=== PATIENT | female | born 1960 | race Caucasian/White ===

== ENCOUNTER → 2017-10-13 | Outpatient (CLI) | payer BC ==
--- NOTE | 2017-10-13 10:12 | Discharge Instructions ---
Discharge Instructions Procedure Procedure Date: Oct 13, 2017. Reason for visit: Right Lymph Node. Discharge Discharge Date: Oct 13, 2017. Discharge Diagnosis: post right breast (8:00) lymph node biopsy Instructions Activity Recommendations: Additional Limitations (see below) Return to School/Work: no limitations Recommended Home Diet: No Limitations Provider Instructions: ACTIVITY RECOMMENDATIONS: * No lifting, pushing, pulling or exercising the affected side for three days. RETURN TO SCHOOL/WORK: * You may return to work/school after the procedure, but do not perform any strenuous activities for 24 to 48 hours. MEDICATIONS: * Tylenol (two 325 mg) every four to six hours if needed for mild pain (if not allergic to Tylenol). DIET: * Resume previous diet. SPECIAL CARE INSTRUCTIONS: * Keep biopsy site dry for 24 hours. May shower after 24 hours, but do not soak (bathe) incision. May remove Tegaderm (plastic patch) 24 hours after procedure * Leave the steri-strips on for one week. Allow the steri-strips to fall off by themselves. If not off after one week, you may remove them. You may place a Bandaid crosswise over the strips, if desired. * Apply ice 10 minutes on and 10 minutes off as needed. * Wear a bra at bedtime to sleep more comfortably for 2-3 days. * Your referring physician should have the results after approximately 5 to 7 business days. * Call for unusual bleeding, fever, drainage, etc or if you have any questions call [phone] during normal business hours or after hours call Dr Puente, . FOLLOW UP VISIT: Follow-up with Referring Physician as scheduled. Allergies Coded Allergies: No Known Allergies (Unverified , NONE, 03/22/16) Julio Hernandez Recommendations: Call your doctor if: * Temperature above 101 degrees * Pain not relieved by pain medicine ordered * There is increased drainage or redness from any incision * You have any unanswered questions or concerns. Your Doctors Instructions noted above were prepared by provider Sapna Puente. Patient Signature Section: Patient Instructions Signature Page Michelle Jean Patient (or Guardian) Signature/Date: I have read and understand the instructions given to me by my caregivers. Caregiver/RN/Doctor Signature/Date: The above-named patient and/or guardian has received patient instructions on this date. + Original Patient Signature Page (only) stays with chart. Please make copy for patient.
--- NOTE | 2017-10-13 16:19 | MAMMOGRAPHY REPORT ---
UNILATERAL RIGHT DIGITAL DIAGNOSTIC MAMMOGRAM TOMOSYNTHESIS: 10/13/2017 CLINICAL HISTORY: Prominent intramammary lymph node right 8:00 breast. Patient presents for tissue sa mpling. Please refer to the report from right breast lymph node biopsy performed at the same time for full de tail. IMPRESSION: POST PROCEDURE IMAGING FOR MARKER PLACEMENT Please refer to the report from right breast lymph node biopsy performed at the same time for full de tail. Some breast cancers are not detected with mammography. A negative mammographic report should not caroline y biopsy if a clinically suggestive mass is present. Sapna Puente M.D. ay/:10/13/2017 10:14:03 Door Installer: Senia Barton, [facility] BI-RADS Code: Post Procedure Imaging For Marker Placement
--- NOTE | 2017-10-15 07:54 | MAMMOGRAPHY REPORT ---
ULTRASOUND GUIDED BIOPSY RIGHT BREAST: 10/13/2017 CLINICAL HISTORY: Prominent intramammary lymph node in the 8:00 right breast. Patient presents for ti ssue sampling. PATIENT CONSENT: The procedure, risks and benefits were discussed with the patient and informed conse nt was obtained both verbally and in writing. Specific risks to this procedure include: bleeding, in fection, puncture of adjacent structure, nontarget biopsy, sampling error, pain, metal allergy and me dication reaction. PROCEDURE DESCRIPTION: A time out was performed and the right breast was agreed as the site of biopsy . First repeat targeted ultrasound was performed in the 8:00 far lateral axis of the right breast in order to identify the slightly prominent intramammary lymph node. It is again seen and amenable to tissue sampling. Please see below. The skin of the lateral right breast was prepped and draped in the usual sterile fashion. 1% buffere d lidocaine without epinephrine was administered as local anesthesia. First, fine-needle aspiration biopsy passes were obtained of the lymph node, for flow cytometric assessment, using three 18-gauge n eedles which were then rinsed in sterile saline. Then, additional buffered lidocaine with epinephrin e was administered and a small skin incision was made. 4 core biopsy samples were then obtained util izing a 14-gauge achieve biopsy device, and placed on saline moistened Telfa. A metallic marker was placed within the lymph node after the biopsy. The patient tolerated the procedure well and there wa s no immediate complication. Hemostasis was achieved after several minutes of manual compression. Th e samples were sent to the pathology department in an appropriately labeled containers. A postprocedure right MLO tomosynthesis view was obtained which documents the biopsy marker clip depl oyed properly and is located within the lymph node in question. No significant postbiopsy hematoma. Pathology is pending. IMPRESSION: ULTRASOUND GUIDED BIOPSY Status post ultrasound-guided core biopsy and fine-needle aspiration biopsy of a prominent lymph node in the 8:00 right breast, with biopsy marker clip placed at the site. The patient will receive notification of the pathology results from her referring physician. Sapna Puente M.D. ay/:10/13/2017 20:38:26 Director Supplier Quality: Senia Barton, [facility]
== END | disposition home or self-care (01) ==
LOC: C.MAMM 09:19
PROVIDERS: ATTEND Family Medicine
DX: R59.1 Generalized enlarged lymph nodes (principal)